=== PATIENT | female | born 1995 | race Two or more races ===

== ENCOUNTER 2025-04-17 00:20 | Inpatient (IN) | payer OTHER ==
[2025-04-17] VITALS (7 sets, daily range): BP systolic 90–105; BP diastolic 52–69; O2SAT 97
[~2025-04-17] VITALS: Ht 154.9 cm; Wt 58.5 kg
[2025-04-17] MEDS ORDERED: SOD FERRIC GLUC COMPLX/SUCROSE 62.5 MG/5 ML AMPUL IV SCH (00:23)
[2025-04-17] MEDS ORDERED: RINGERS SOLUTION,LACTATED 1,000 ML IV SCH (00:30)
[2025-04-17] MEDS ORDERED: PRENATA CHEWAB1 EACH PO (01:36)
[2025-04-17 08:03] LABS: BASO % 0.2 % (0.1-1.2); EOS # 0.16 (0.04-0.54); EOS % 1.4 % (0.7-7.0); LYMPH # 1.74 (1.18-3.74); LYMPH % 14.7 % (19.3-53.1); MEAN PLATELET VOLUME 10.00 fl (9.4-12.4); MONO # 1.17 (0.24-0.82); MONO % 9.9 % (4.7-12.5); NEUT # 8.65 (1.56-6.13); NEUT % 73.0 % (34.0-71.1); RED CELL DISTRIBUTION WIDTH 13.0 % (11.6-14.4)
[2025-04-17] MEDS ORDERED: SOD FERRIC GLUC COMPLX/SUCROSE 62.5 MG/5 ML AMPUL IV NR (17:30)
[2025-04-17] MEDS ORDERED: ACETAMINOPHEN 500 MG GEL..CAP PO PRN (22:30)
[2025-04-18 00:32] LABS: BASO % 0.1 % (0.1-1.2); EOS # 0.14 (0.04-0.54); EOS % 1.0 % (0.7-7.0); LYMPH # 1.58 (1.18-3.74); LYMPH % 11.6 % (19.3-53.1); MEAN PLATELET VOLUME 10.00 fl (9.4-12.4); MONO # 1.20 (0.24-0.82); MONO % 8.8 % (4.7-12.5); NEUT # 10.49 (1.56-6.13); NEUT % 77.5 % (34.0-71.1); RED CELL DISTRIBUTION WIDTH 13.7 % (11.6-14.4)
[2025-04-18 03:00] VITALS: BP 93/54
[2025-04-18 06:19] VITALS: BP 99/62; O2SAT 97
[2025-04-18] MEDS ORDERED: SOD FERRIC GLUC COMPLX/SUCROSE 62.5 MG/5 ML AMPUL IV SCH (09:00)
== END 2025-04-18 10:15 | disposition home or self-care (01) | DRG 833 ==
LOC: LDR 00:20
PROVIDERS: Obstetrics & Gynecology Gynecology; ADMIT Obstetrics & Gynecology; ATTEND Obstetrics & Gynecology
PROC: 30233N1 Transfusion of Nonautologous Red Blood Cells into Peripheral Vein, Percutaneous Approach (ICD-10-PCS; principal; 2025-04-17)
PROC: 4A1HXCZ Monitoring of Products of Conception, Cardiac Rate, External Approach (ICD-10-PCS; 2025-04-17)
DX: O99.013 Anemia complicating pregnancy, third trimester (principal); Z3A.30 30 weeks gestation of pregnancy; D64.9 Anemia, unspecified